=== PATIENT | male | born 1940 | race African-American/Black ===

== ENCOUNTER 2023-05-12 19:57 | Inpatient (IN) | payer MEDICARE, OTHER ==
[~2023-05-12] VITALS: Ht 182.9 cm; Wt 95.9 kg
[~2023-05-12 19:57] MED LIST: ACET-2247 PO; AMLO10TA55 PO; ASPI-1227 PO; ATOR20TA65 PO; CHLO25TA3 PO; CHOL100062 PO; FAMO20 PO; FOLI-130 PO; HEPA500018 SQ; INSU100V SQ; LEVE500T20 PO; LISI-894 PO; MELA5TAB21 PO; MULT-248 PO; OLAN7.5T22 PO
[2023-05-12 21:22] LABS: BASOPHILS % (AUTO) 0.6 % (0.0-2.0); EOSINOPHILS % (AUTO) 1.3 % (1.0-6.0); HEMATOCRIT 48.2 % (41-53); HEMOGLOBIN 15.4 g/dL (13.5-17.5); LYMPHOCYTES # (AUTO) 1.7 K/uL (1.0-4.8); LYMPHOCYTES % (AUTO) 20.8 % (22.0-44.0); MEAN CORPUSCULAR HEMOGLOBIN 26.7 pg (26.0-34.0); MEAN CORPUSCULAR HGB CONC 31.8 G/dL (31.0-37.0); MEAN CORPUSCULAR VOLUME 84 fL (80-100); MONOCYTES # (AUTO) 0.6 K/uL (0.1-1.0); MONOCYTES % (AUTO) 7.6 % (2.0-9.0); NEUTROPHILS # (AUTO) 5.8 K/uL (1.8-7.7); NEUTROPHILS % (AUTO) 69.7 % (40.0-70.0); PLATELET COUNT (AUTO) 231 K/uL (150-450); RED BLOOD CELL COUNT(AUTO) 5.75 MIL/uL (4.50-5.90); RED CELL DISTRIBUTION WIDTH 15.4 % (11.5-14.5)
[2023-05-12 21:33] LABS: CALCIUM, TOTAL 10.4 mg/dL (8.8-10.5); CREATININE 2.7 mg/dL (0.60-1.30); POTASSIUM 5.1 mmol/L (3.5-5.1)
[2023-05-12 21:39] LABS: ALBUMIN 3.6 g/dL (3.4-5.0); BILIRUBIN,TOTAL 0.7 mg/dL (0.1-1.0); MAGNESIUM 2.6 mg/dL (1.80-2.40); TOTAL PROTEIN, SERUM 7.7 g/dL (6.4-8.2)
[2023-05-12 21:41] LABS: LACTIC ACID 1.4 mmol/L (0.4-2.0)
[2023-05-12 21:59] LABS: COVID AG,FIA SOURCE NASOPHARYNGEAL
[2023-05-12 22:01] LABS: APPEARANCE,URINE CLEAR (CLEAR); BILIRUBIN,URINE NEGATIVE (NEGATIVE); GLUCOSE, URINE (UA) NEGATIVE (NEGATIVE); KETONES,URINE NEGATIVE (NEGATIVE); LEUKOCYTE ESTERASE ,URINE NEGATIVE (NEGATIVE); NITRATE,URINE NEGATIVE (NEGATIVE); OCCULT BLOOD,URINE NEGATIVE (NEGATIVE); PROTEIN,URINE 30-70 mg/dL (NEGATIVE); SPECIFIC GRAVITIY, URINE 1.024 (1.003-1.030); UROBILINOGEN,URINE <=1.0 mg/dL (<=1.0)
[2023-05-12] MEDS ORDERED: SODIUM CHLORIDE 0.9% 1,000 ML IV ONE (22:45)
[2023-05-12] MEDS ORDERED: DEXTROSE 50%-WATER 25 GM/50 ML SYRINGE IVP PRN (22:45)
[2023-05-12] MEDS ORDERED: ONDANSETRON HCL 4 MG/2 ML VIAL IVP PRN (22:45)
[2023-05-12] MEDS ORDERED: BISACODYL 10 MG RECTAL RECTAL SUPPOSITORY PR PRN (22:45)
[2023-05-12] MEDS ORDERED: ACETAMINOPHEN 325 MG TABLET PO PRN (22:45)
[2023-05-12 23:03] LABS: BACTERIA,URINE None Seen /HPF (None Seen); RBC,URINE None Seen /HPF (0-2); SQUAMOUS EPITHELIAL CELL,UR Rare /LPF (None Seen); WBC,URINE None Seen /HPF (0-5)
[2023-05-12] MEDS ORDERED: ASPIRIN 300 MG RECTAL SUPPOSITORY PR ONE (23:30)
[2023-05-12] MEDS: FUROSEMIDE 40 MG/4 ML VIAL IVP ONE (23:47)
[2023-05-13] VITALS (11 sets, daily range): BP systolic 92–126; BP diastolic 56–93; PULSE 80–130; RESP 18–30; TEMP 97.6–98.4; O2SAT 89–98
[2023-05-13] MEDS: HEPARIN SODIUM,PORCINE 5,000 UNITS/ML VIAL SQ SCH ×4 (01:52→23:27)
[2023-05-13] MEDS: FUROSEMIDE 40 MG/4 ML VIAL IVP ONE (01:52)
[2023-05-13] MEDS ORDERED: AMIODARONE HCL 360 MG in DEXTROSE 5%-WATER 242.8 ML IV ONE (04:30)
[2023-05-13] MEDS ORDERED: AMIODARONE HCL 150 MG in DEXTROSE 5%-WATER 97 ML IV ONE (04:30)
[2023-05-13] MEDS: INSULIN LISPRO 100 UNITS/ML SQ PRN ×3 (06:17→20:34)
[2023-05-13 06:26] LABS: GLUCOMETER DEV NAME(LOC) 5N.2C
[2023-05-13] MEDS ORDERED: LORazepam 2 MG/ML VIAL IVP ONE (08:15)
[2023-05-13] MEDS ORDERED: LORazepam 2 MG/ML VIAL ONE (08:17)
[2023-05-13] MEDS ORDERED: *CLINICAL-CEFEPIME DOSING CLINICAL ONE (08:45)
[2023-05-13 09:08] LABS: BASOPHILS % (AUTO) 0.3 % (0.0-2.0); EOSINOPHILS % (AUTO) 0 % (1.0-6.0); HEMATOCRIT 51.6 % (41-53); HEMOGLOBIN 16.6 g/dL (13.5-17.5); LYMPHOCYTES # (AUTO) 0.6 K/uL (1.0-4.8); LYMPHOCYTES % (AUTO) 3.5 % (22.0-44.0); MEAN CORPUSCULAR HEMOGLOBIN 27.5 pg (26.0-34.0); MEAN CORPUSCULAR HGB CONC 32.2 G/dL (31.0-37.0); MEAN CORPUSCULAR VOLUME 85 fL (80-100); MONOCYTES % (AUTO) 5.7 % (2.0-9.0); NEUTROPHILS # (AUTO) 15.2 K/uL (1.8-7.7); PLATELET COUNT (AUTO) 230 K/uL (150-450); RED BLOOD CELL COUNT(AUTO) 6.05 MIL/uL (4.50-5.90); RED CELL DISTRIBUTION WIDTH 15.3 % (11.5-14.5)
[2023-05-13] MEDS ORDERED: VANCOMYCIN HCL 1.5 GM in DEXTROSE 5%-WATER 250 ML IV ONE (09:15)
[2023-05-13 09:21] LABS: NEUTROPHILS % (AUTO) 90.5 % (40.0-70.0)
[2023-05-13 09:22] LABS: ABG BASE EXCESS -4.1 mmol/L (-2.0-3.0); ABG CARBOXYHEMOGLOBIN 1.3 % (0.0-1.5); ABG HCO3 22.2 mmol/L (22.0-26.0); ABG OXYGEN CONTENT 24.2 mL/dL (15.0-23.0); ABG OXYGEN SATURATION 99.7 % (95.0-98.0); ABG OXYHEMOGLOBIN 98.4 % (94.0-100.0); ABG PCO2 32 mmHg (35-45); ABG PH 7.426 (7.35-7.450); ABG TOTAL HEMOGLOBIN 17.2 G/dL (12.0-18.0); PO2, ARTERIAL BG 224.2 mmHg (71.0-79.0); SOURCE, BLOOD GAS ARTERIAL
[2023-05-13 09:23] LABS: O2 DEVICE,BLOOD GAS BIPAP (ROOM AIR); SITE, BLOOD GAS RT BRACHIAL
[2023-05-13 09:24] LABS: ANION GAP 16 mmol/L (8-16); CALCIUM, TOTAL 10.3 mg/dL (8.8-10.5); CARBON DIOXIDE 22 mmol/L (22-29); CHLORIDE 99 mmol/L (98-107); CREATININE 2.87 mg/dL (0.60-1.30); GLOMERULAR FILTR. RATE CALC 25 mL/min (>60); GLUCOSE,RANDOM 218 mg/dL (70-110); POTASSIUM 4.8 mmol/L (3.5-5.1); SODIUM SERUM 137 mmol/L (136-145)
[2023-05-13 09:24] LABS: SPONTANEOUS VT, BG 854 ml
[2023-05-13 09:29] LABS: ALANINE AMINOTRANSFERASE 23 U/L (12-78); ALBUMIN 3.4 g/dL (3.4-5.0); ALKALINE PHOSPHATASE 119 U/L (46-116); ASPARTATE AMINOTRANSFERASE 16 U/L (15-37); BILIRUBIN,TOTAL 1.3 mg/dL (0.1-1.0); TOTAL PROTEIN, SERUM 7.8 g/dL (6.4-8.2)
[2023-05-13] MEDS ORDERED: VANCOMYCIN 1GM/WATER(PEG/NADA) 200 ML IV PRN (09:30)
[2023-05-13 09:36] LABS: LACTIC ACID 3.3 mmol/L (0.4-2.0)
[2023-05-13 09:42] LABS: B-TYPE NATRIURETIC PEPTIDE 64 pg/mL (0-100)
[2023-05-13] MEDS ORDERED: DILTIAZEM HCL 5 MG/ML 5 ML VIAL IVP ONE (10:30)
[2023-05-13] MEDS ORDERED: AMIODARONE HCL 540 MG in DEXTROSE 5%-WATER 239.2 ML IV ONE (10:30)
[2023-05-13] MEDS: CEFEPIME HCL 1 GM in DEXTROSE 5%-WATER 50 ML IV SCH ×2 (10:42→23:24)
[2023-05-13] MEDS: PANTOPRAZOLE SODIUM 40 MG/VIAL IVP SCH (10:42)
[2023-05-13] MEDS: LevETIRAcetam 500 MG in DEXTROSE 5%-WATER 100 ML IV SCH (10:42)
[2023-05-13] MEDS ORDERED: SODIUM CHLORIDE 0.9% 250 ML IV ONE (10:57)
[2023-05-13] MEDS ORDERED: PENTETATE DTPA TC99M/MCL ISOTOPE 1 EA INJ INJ ONE (12:20)
[2023-05-13] MEDS ORDERED: MAA ALBUMIN AGGREGATED TC99M/UD<10MCL ISOTOPE 1 EA INJ INJ ONE (12:45)
[2023-05-13] MEDS: SODIUM CHLORIDE 0.9% 1,000 ML IV SCH (13:43)
[2023-05-13 17:52] LABS: CALCIUM, TOTAL 9.3 mg/dL (8.8-10.5); CREATININE 2.86 mg/dL (0.60-1.30); MAGNESIUM 2.2 mg/dL (1.80-2.40); PHOSPHORUS 3.1 mg/dL (2.5-4.9); POTASSIUM 4.9 mmol/L (3.5-5.1)
[2023-05-14] VITALS: BP 102/65; PULSE 79; RESP 18; TEMP 97.5
[2023-05-14] MEDS: SODIUM CHLORIDE 0.9% 1,000 ML IV SCH ×2 (01:20→15:53)
[2023-05-14 04:00] VITALS: BP 114/68; PULSE 70; RESP 18; TEMP 98
[2023-05-14] MEDS ORDERED: AMIODARONE HCL 750 MG in DEXTROSE 5%-WATER 485 ML IV SCH (04:30)
[2023-05-14 08:00] VITALS: BP 136/44; PULSE 67; RESP 20; TEMP 97.6
[2023-05-14 08:29] LABS: BASOPHILS % (AUTO) 0.1 % (0.0-2.0); EOSINOPHILS % (AUTO) 0.5 % (1.0-6.0); HEMATOCRIT 47.7 % (41-53); HEMOGLOBIN 14.9 g/dL (13.5-17.5); LYMPHOCYTES # (AUTO) 1.2 K/uL (1.0-4.8); LYMPHOCYTES % (AUTO) 9.9 % (22.0-44.0); MEAN CORPUSCULAR HEMOGLOBIN 26.5 pg (26.0-34.0); MEAN CORPUSCULAR HGB CONC 31.3 G/dL (31.0-37.0); MEAN CORPUSCULAR VOLUME 85 fL (80-100); MONOCYTES # (AUTO) 0.8 K/uL (0.1-1.0); MONOCYTES % (AUTO) 6.7 % (2.0-9.0); NEUTROPHILS # (AUTO) 9.6 K/uL (1.8-7.7); NEUTROPHILS % (AUTO) 82.8 % (40.0-70.0); PLATELET COUNT (AUTO) 172 K/uL (150-450); RED BLOOD CELL COUNT(AUTO) 5.64 MIL/uL (4.50-5.90)
[2023-05-14 08:44] LABS: CALCIUM, TOTAL 9.9 mg/dL (8.8-10.5); CREATININE 2.08 mg/dL (0.60-1.30); POTASSIUM 4.7 mmol/L (3.5-5.1); VANCOMYCIN,RANDOM 24.4 mcg/mL (25.0-50.0)
[2023-05-14] MEDS: LevETIRAcetam 500 MG in DEXTROSE 5%-WATER 100 ML IV SCH (09:43)
[2023-05-14] MEDS: HEPARIN SODIUM,PORCINE 5,000 UNITS/ML VIAL SQ SCH ×2 (09:43→15:52)
[2023-05-14] MEDS: PANTOPRAZOLE SODIUM 40 MG/VIAL IVP SCH (09:43)
[2023-05-14] MEDS ORDERED: SODIUM CHLORIDE 0.9% 250 ML IV ONE (09:59)
[2023-05-14] MEDS ORDERED: AMIODARONE HCL 200 MG TABLET PO SCH (10:15)
[2023-05-14] MEDS: CEFEPIME HCL 1 GM in DEXTROSE 5%-WATER 50 ML IV SCH ×2 (11:54→23:56)
[2023-05-14 12:00] VITALS: BP 147/75; PULSE 52; TEMP 98.1
[2023-05-14] MEDS: INSULIN LISPRO 100 UNITS/ML SQ PRN ×2 (12:09→17:49)
[2023-05-14 16:00] VITALS: BP 137/70; PULSE 55; RESP 12; TEMP 97.2
[2023-05-14 20:00] VITALS: BP 150/80; PULSE 55; RESP 22; TEMP 96.5
[2023-05-14 20:56] LABS: ABG BASE EXCESS 1.1 mmol/L (-2.0-3.0); ABG CARBOXYHEMOGLOBIN 1.1 % (0.0-1.5); ABG METHEMOGLOBIN 0.3 % (0.0-1.5); ABG OXYGEN CONTENT 19.9 mL/dL (15.0-23.0); ABG OXYGEN SATURATION 97.4 % (95.0-98.0); ABG PCO2 44 mmHg (35-45); ABG PH 7.391 (7.35-7.450); ABG TOTAL HEMOGLOBIN 14.7 G/dL (12.0-18.0); PO2, ARTERIAL BG 83.6 mmHg (71.0-79.0); SOURCE, BLOOD GAS ARTERIAL; TEMPERATURE, FAHRENHEIT, BG 96.5 FAHREN (96.0-98.6)
[2023-05-14 20:57] LABS: ABG A-A DIFF O2 181.6 mmHg (10-20.0); O2 DEVICE,BLOOD GAS SIMPLE MASK (ROOM AIR); SITE, BLOOD GAS LFT RADIAL
[2023-05-14] MEDS: METOPROLOL TARTRATE 25 MG TABLET PO SCH (21:00)
[2023-05-15] VITALS (7 sets, daily range): BP systolic 127–157; BP diastolic 72–85; PULSE 48–73; RESP 16–20; TEMP 96.9–98.1
[2023-05-15] MEDS: HEPARIN SODIUM,PORCINE 5,000 UNITS/ML VIAL SQ SCH ×4 (00:14→23:42)
[2023-05-15] MEDS: SODIUM CHLORIDE 0.9% 1,000 ML IV SCH (05:38)
[2023-05-15 08:50] LABS: BASOPHILS % (AUTO) 0.4 % (0.0-2.0); EOSINOPHILS % (AUTO) 1.4 % (1.0-6.0); HEMATOCRIT 43.4 % (41-53); HEMOGLOBIN 14.2 g/dL (13.5-17.5); LYMPHOCYTES # (AUTO) 1.2 K/uL (1.0-4.8); LYMPHOCYTES % (AUTO) 13.7 % (22.0-44.0); MEAN CORPUSCULAR HEMOGLOBIN 27.7 pg (26.0-34.0); MEAN CORPUSCULAR HGB CONC 32.7 G/dL (31.0-37.0); MEAN CORPUSCULAR VOLUME 85 fL (80-100); MONOCYTES # (AUTO) 0.7 K/uL (0.1-1.0); MONOCYTES % (AUTO) 8.2 % (2.0-9.0); NEUTROPHILS # (AUTO) 6.5 K/uL (1.8-7.7); NEUTROPHILS % (AUTO) 76.3 % (40.0-70.0); PLATELET COUNT (AUTO) 169 K/uL (150-450); RED BLOOD CELL COUNT(AUTO) 5.13 MIL/uL (4.50-5.90); RED CELL DISTRIBUTION WIDTH 14.9 % (11.5-14.5)
[2023-05-15] MEDS: PANTOPRAZOLE SODIUM 40 MG/VIAL IVP SCH (08:57)
[2023-05-15] MEDS: METOPROLOL TARTRATE 25 MG TABLET PO SCH ×2 (08:58→20:53)
[2023-05-15] MEDS: LevETIRAcetam 500 MG in DEXTROSE 5%-WATER 100 ML IV SCH (08:58)
[2023-05-15 09:10] LABS: CALCIUM, TOTAL 9.8 mg/dL (8.8-10.5); CREATININE 1.42 mg/dL (0.60-1.30); POTASSIUM 4.6 mmol/L (3.5-5.1); VANCOMYCIN,RANDOM 6.1 mcg/mL (25.0-50.0)
[2023-05-15] MEDS: CEFEPIME HCL 1 GM in DEXTROSE 5%-WATER 50 ML IV SCH (11:23)
[2023-05-15] MEDS: INSULIN LISPRO 100 UNITS/ML SQ PRN ×3 (11:55→20:55)
[2023-05-15] MEDS ORDERED: VANCOMYCIN 1GM/WATER(PEG/NADA) 200 ML IV ONE (13:00)
[2023-05-15 20:50] LABS: GLUCOMETER DEV NAME(LOC) 5S.2C
[2023-05-15] MEDS ORDERED: CEFEPIME HCL 2 GM in DEXTROSE 5%-WATER 50 ML IV SCH (23:00)
[2023-05-15] MEDS ORDERED: SODIUM CHLORIDE 0.9% 500 ML IV ONE (23:22)
[2023-05-16 01:15] VITALS: BP 140/59; PULSE 52; RESP 18; TEMP 98
[2023-05-16 01:32] LABS: GLUCOMETER DEV NAME(LOC) 5N.1C
[2023-05-16 05:11] VITALS: BP 154/73; PULSE 76; RESP 18; TEMP 98.1
[2023-05-16 07:53] VITALS: BP 145/62; PULSE 71; RESP 18; TEMP 98.4
[2023-05-16] MEDS: HEPARIN SODIUM,PORCINE 5,000 UNITS/ML VIAL SQ SCH ×3 (08:00→23:17)
[2023-05-16 08:55] LABS: CARBON DIOXIDE 27 mmol/L (22-29); CHLORIDE 101 mmol/L (98-107); POTASSIUM 4.4 mmol/L (3.5-5.1); SODIUM SERUM 136 mmol/L (136-145)
[2023-05-16 08:56] LABS: ANION GAP 8 mmol/L (8-16); CALCIUM, TOTAL 9.9 mg/dL (8.8-10.5); GLOMERULAR FILTR. RATE CALC > 60 mL/min (>60); GLUCOSE,RANDOM 145 mg/dL (70-110); VANCOMYCIN,RANDOM 8.6 mcg/mL (25.0-50.0)
[2023-05-16] MEDS: APIXABAN 2.5 MG TABLET PO SCH ×2 (08:57→19:52)
[2023-05-16] MEDS: LevETIRAcetam 500 MG in DEXTROSE 5%-WATER 100 ML IV SCH (09:00)
[2023-05-16] MEDS: METOPROLOL TARTRATE 25 MG TABLET PO SCH ×3 (09:00→21:00)
[2023-05-16] MEDS: PANTOPRAZOLE SODIUM 40 MG/VIAL IVP SCH (09:01)
[2023-05-16] MEDS ORDERED: VANCOMYCIN HCL 1.5 GM in DEXTROSE 5%-WATER 250 ML IV ONE (11:00)
[2023-05-16] MEDS: CEFEPIME HCL 2 GM in DEXTROSE 5%-WATER 50 ML IV SCH ×2 (11:12→18:05)
[2023-05-16 11:34] VITALS: BP 123/69; PULSE 67; RESP 18; TEMP 98.5
[2023-05-16] MEDS: INSULIN LISPRO 100 UNITS/ML SQ PRN ×3 (12:33→20:10)
[2023-05-16 12:36] LABS: GLUCOMETER DEV NAME(LOC) 5S.2C
[2023-05-16 16:10] VITALS: BP 124/75; PULSE 69; RESP 18; TEMP 97.7
[2023-05-16 20:13] VITALS: BP 140/73; PULSE 54; RESP 19; TEMP 97.8
[2023-05-16 22:56] LABS: GLUCOMETER DEV NAME(LOC) 5N.1C
[2023-05-16 22:56] LABS: GLUCOMETER DEV NAME(LOC) 5N.1C
[2023-05-16 22:56] LABS: GLUCOMETER DEV NAME(LOC) 5N.1C
[2023-05-17 00:07] VITALS: BP 147/65; PULSE 48; RESP 17; TEMP 98.1
[2023-05-17] MEDS: CEFEPIME HCL 2 GM in DEXTROSE 5%-WATER 50 ML IV SCH ×2 (02:56→11:59)
[2023-05-17 04:18] VITALS: BP 139/63; PULSE 49; RESP 17; TEMP 98.1
[2023-05-17] MEDS: INSULIN LISPRO 100 UNITS/ML SQ PRN ×3 (05:51→17:39)
[2023-05-17 06:52] LABS: BASOPHILS % (AUTO) 0.3 % (0.0-2.0); EOSINOPHILS % (AUTO) 3.1 % (1.0-6.0); HEMATOCRIT 44.6 % (41-53); HEMOGLOBIN 14.4 g/dL (13.5-17.5); LYMPHOCYTES # (AUTO) 1.2 K/uL (1.0-4.8); LYMPHOCYTES % (AUTO) 20.8 % (22.0-44.0); MEAN CORPUSCULAR HEMOGLOBIN 27.2 pg (26.0-34.0); MEAN CORPUSCULAR HGB CONC 32.2 G/dL (31.0-37.0); MEAN CORPUSCULAR VOLUME 84 fL (80-100); MONOCYTES # (AUTO) 0.7 K/uL (0.1-1.0); MONOCYTES % (AUTO) 12.1 % (2.0-9.0); NEUTROPHILS # (AUTO) 3.7 K/uL (1.8-7.7); NEUTROPHILS % (AUTO) 63.7 % (40.0-70.0); PLATELET COUNT (AUTO) 199 K/uL (150-450); RED BLOOD CELL COUNT(AUTO) 5.29 MIL/uL (4.50-5.90); RED CELL DISTRIBUTION WIDTH 14.8 % (11.5-14.5)
[2023-05-17 07:10] LABS: ANION GAP 6 mmol/L (8-16); CALCIUM, TOTAL 9.9 mg/dL (8.8-10.5); CARBON DIOXIDE 27 mmol/L (22-29); CHLORIDE 100 mmol/L (98-107); CREATININE 1.24 mg/dL (0.60-1.30); GLOMERULAR FILTR. RATE CALC > 60 mL/min (>60); GLUCOSE,RANDOM 157 mg/dL (70-110); PHOSPHORUS 2.3 mg/dL (2.5-4.9); POTASSIUM 4.5 mmol/L (3.5-5.1); SODIUM SERUM 133 mmol/L (136-145)
[2023-05-17] MEDS ORDERED: VANCOMYCIN 1GM/WATER(PEG/NADA) 200 ML IV SCH (08:00)
[2023-05-17] MEDS ORDERED: VANCOMYCIN HCL 1.25 GM in DEXTROSE 5%-WATER 250 ML IV SCH (08:00)
[2023-05-17 08:20] VITALS: BP 167/71; PULSE 61; RESP 20; TEMP 98.6
[2023-05-17] MEDS ORDERED: ATORVASTATIN CALCIUM 20 MG TABLET PO SCH (09:00)
[2023-05-17] MEDS: LevETIRAcetam 500 MG in DEXTROSE 5%-WATER 100 ML IV SCH (09:01)
[2023-05-17] MEDS: APIXABAN 2.5 MG TABLET PO SCH (09:02)
[2023-05-17] MEDS: METOPROLOL TARTRATE 25 MG TABLET PO SCH (09:02)
[2023-05-17] MEDS: HEPARIN SODIUM,PORCINE 5,000 UNITS/ML VIAL SQ SCH ×2 (09:02→14:52)
[2023-05-17] MEDS: PANTOPRAZOLE SODIUM 40 MG/VIAL IVP SCH (09:02)
[2023-05-17] MEDS ORDERED: SODIUM PHOS,M-BASIC-D-BASIC 20 MMOL in DEXTROSE 5%-WATER 150 ML IV ONE (11:30)
[2023-05-17] MEDS ORDERED: MAGNESIUM SULFATE 2 GM/WATER 50 ML IV ONE (11:30)
[2023-05-17 12:25] VITALS: BP 139/76; PULSE 59; RESP 20; TEMP 98.5
[2023-05-17 16:42] VITALS: BP 115/64; PULSE 56; RESP 20; TEMP 98.1
[2023-05-17 17:26] LABS: GLUCOMETER DEV NAME(LOC) 5S.2C
[2023-05-17 19:52] VITALS: BP 159/73; PULSE 66; RESP 20; TEMP 97.8
[2023-05-17] MEDS ORDERED: APIX5TAB4 PO (20:02)
[2023-05-17] MEDS ORDERED: CEFE2I IV (20:23)
[2023-05-17] MEDS ORDERED: CEFEPIME HCL 2 GM in DEXTROSE 5%-WATER 50 ML IV SCH (23:00)
[2023-05-18 05:41] LABS: GLUCOMETER DEV NAME(LOC) 5S.1B
[2023-05-18 05:41] LABS: GLUCOMETER DEV NAME(LOC) 5S.1B
== END 2023-05-17 20:20 | DRG 871 ==
LOC: EDUNIT# 19:57 → EMS 19:59 → 5S 23:33 → ICU 05-13 09:40 → 5S 05-15 17:35
PROVIDERS: ADMIT Internal Medicine; ATTEND Internal Medicine
DX: A41.9 Sepsis, unspecified organism (principal); G92.8 Other toxic encephalopathy; J96.01 Acute respiratory failure with hypoxia; J18.9 Pneumonia, unspecified organism; I21.4 Non-ST elevation (NSTEMI) myocardial infarction; N17.9 Acute kidney failure, unspecified; I13.0 Hypertensive heart and chronic kidney disease with heart failure and stage 1 through stage 4 chronic kidney disease, or unspecified chronic kidney disease; I48.20 Chronic atrial fibrillation, unspecified; E87.1 Hypo-osmolality and hyponatremia; I50.22 Chronic systolic (congestive) heart failure; R62.7 Adult failure to thrive; N18.31 Chronic kidney disease, stage 3a; Z20.822 Contact with and (suspected) exposure to COVID-19; I44.7 Left bundle-branch block, unspecified; F03.90 Unspecified dementia, unspecified severity, without behavioral disturbance, psychotic disturbance, mood disturbance, and anxiety; G40.909 Epilepsy, unspecified, not intractable, without status epilepticus; Y95 Nosocomial condition; E11.22 Type 2 diabetes mellitus with diabetic chronic kidney disease; Z79.899 Other long term (current) drug therapy; Z86.73 Personal history of transient ischemic attack (TIA), and cerebral infarction without residual deficits; Z88.0 Allergy status to penicillin; Z68.28 Body mass index [BMI] 28.0-28.9, adult
CPT/HCPCS: 36600; 51701; 70450; 71045; 71250; 78582; 80048; 80053; 80202; 81001; 82805; 82962; 83605; 83690; 83735; 83880; 84100; 84484; 85025; 85730; 87040; 87081; 92610; 93005; 94660; 99291; A9539; A9540; C9113; G0378; J0282; J0692; J0712; J1644; J1940; J2060; J3370; J3475; J3490; J7030; J7040; J7050; J7060; Q9967; 36415-L1; 36415-TC; X7700